=== PATIENT | female | born 1965 | race Caucasian/White ===

== ENCOUNTER 2016-04-04 09:05 | Emergency (ER) | payer BC, OTHER ==
[2016-04-04 09:16] VITALS: BP 131/90; PULSE 89; TEMP 98; BMI 32.1
--- NOTE | 2016-04-04 10:49 | EDPRACDOC ---
- General Information Chief Complaint: Medication Refill Stated Complaint: MEDICATION REFILL Time Seen by Provider: 04/04/16 10:43 Mode Of Arrival: Car Home Medications: Home Medications Lisinopril 20 mg PO DAILY 01/31/14 Multivitamin [One Daily] 1 tab PO DAILY 01/31/14 Pravastatin Sodium 80 mg PO HS 01/31/14 Diclofenac Sodium [Voltaren] 75 mg PO BID 07/02/15 Doxepin HCl 50 mg PO DAILY 07/02/15 Gabapentin 600 mg PO TID 07/02/15 Meclizine HCl 25 mg PO Q4H PRN 07/02/15 Venlafaxine HCl ER [Effexor XR] 150 mg PO DAILY 07/02/15 Clonazepam [Klonopin] 1 mg PO BID #10 tablet 07/03/15 Clonazepam 1 mg PO BID #14 tablet 04/04/16 Allergies/Adverse Reactions: Allergies Allergy/AdvReac Type Severity Reaction Status Date / Time prednisone Allergy Intermediate Hypertensio Verified 04/04/16 09:16 n - History of Present Illness Duration Without Medication: YEST HPI: Pt states her PCP is out of office due to in family and she was told to come to ED for a 7 day supply refill. Pt states she is out of Klonopin. Pt states recent of a friend and is more anxious this morning. Denies cp, sob , abd pain. Context: Reports: Ran out of Medication Medication for: Reports: Psychiatric Pain: Reports: None ED Past Medical History - History Reviewed Yes Nurses notes reviewed and agree except as marked - Patient Medical History Cardiac History: Reports: Hypertension, Hypercholesterolemia GI/ History: Reports: Urinary Tract Infection Psychological History: Reports: Depression, Anxiety Systemic History: Denies: Cancer Surgical History: Denies: Hysterectomy - Family Medical History Reports: Hypertension (PARENTS), Diabetes (MOTHER), Stroke (PARENTS), Cardiac Disorders (PARENTS). Denies: Cancer - Social Medical History Smoking Status: Light tobacco smoker (less than 5/day) ETOH: None Substance Abuse: None EDM Review of Systems - Review of Systems Constitutional: No Symptoms Reported. negative: Fever, Chills, Weakness, Fatigue, Loss of Appetite Respiratory: No Symptoms Reported. negative: Cough, Brassy Cough, Barky Cough, Shortness of Breath, Wheezing, Hemoptysis Cardiovascular: No Symptoms Reported. negative: Chest Pain, Palpitations, Syncope, Edema, Orthopnea, PND, Skin Mottling, Cyanosis Gastrointestinal: No Symptoms Reported. negative: Pain, Constipation, Nausea, Vomiting, Diarrhea, Melena, Formula Intolerance Genitourinary: No Symptoms Reported. negative: Dysuria, Hematuria, Frequency, Discharge, Bleeding, Testicular Pain, Neurological: No Symptoms Reported. negative: Headache, Dizziness, Seizure, Numbness, Weakness, Speech Difficulty, Gait Difficulty Musculoskeletal: No Symptoms Reported. negative: Neck, Chestwall, Ribs, Back, Shoulder, Arm, Elbow, Forearm, Wrist, Hand, Pelvis, Hip, Femur, Knee, Leg, Ankle , Foot Integumentary: No Symptoms Reported. negative: Itching, Rash, Bruising, Wound Allergic/Immunologic: No Symptoms Reported. negative: Hives, Itching Hematologic: No Symptoms Reported. negative: Lymphadenopathy, Easy Bruising, Easy Bleeding Psychiatric: Anxiety - Physical Exam Constitutional: Alert Oriented to: Time, Person, Place Last recorded Vital Signs: Last Vital Signs Temp 98.0 F 04/04/16 09:12 Pulse 89 04/04/16 09:12 Resp 18 04/04/16 09:12 BP 131/90 04/04/16 09:12 Pulse Ox 97 04/04/16 09:12 Oxygen Pulse Oxygen Saturation 97 O2 Device Oxygen Flow Rate Fraction of Inspired Oxygen ( FIO2) - HEENT Head: Normal ( normocephalic) - Respiratory/Cardiovascular Respiratory: Normal - CTA (BBS clear to auscultation without adventitious sounds ) Cardiovascular: Normal (RRR without murmur, gallop or rub) - Integumentary Skin: Normal, Warm, Dry Lymphatics: Normal (no adenopathy) - Neurologic Memory Impaired: Normal Motor Function: Normal (Normal tone, Pulses 2+ No cyanosis or edema, FROM) Mood Description: Normal Perception: Normal - Differential Diagnosis Medication Refill - Additional Information DMHDDSAS 03/06/16 Clonazepam 1 mg #90 02/06/16 Clonazepam 1 mg #60 01/07/16 Clonazepam 1 mg #60 Discussed chronic medication refills and need to see PCP. Due to pt never being here for med refill and scheduled monthly refills by same MD will refill a 7 day supply. Decision Time to Discharge: 10:53 - Departure Disposition: Home Condition: Good Final Diagnosis: Medication refill Instructions: Medication Refill Education/Counseling Given To: Patient Education/Counseling Given Regarding: Diagnosis, Treatment, Follow Up Referrals: Mike Waggoner MD [Primary Care Provider] - One Week Prescriptions: Clonazepam 1 mg PO BID #14 tablet Forms: Primary / Family Care Contact Additional Instructions: Follow up with Personal MD for further medication refills.
== END 2016-04-04 11:07 | disposition home or self-care (01) ==
LOC: ED 09:05
DX: Z76.0 Encounter for issue of repeat prescription (principal)
CPT/HCPCS: 99282